=== PATIENT | male | born 2000 | race Caucasian/White ===

== ENCOUNTER 2021-11-13 20:23 | Emergency (ER) | payer OTHER ==
[~2021-11-13] VITALS: Ht 170.2 cm; Wt 97.5 kg
[~2021-11-13 20:23] MED LIST: AMOCLA500 PO; AMOX250CH PO; BENZ10TG; CODACEE120 PO; HYDACE7.5L PO; ONDA4 PO; PENVK250SU PO; TYLENOL PRN
[2021-11-13] MEDS ORDERED: OFLOXACIN5 M2 LEFTEAR (21:15)
== END 2021-11-13 21:17 | disposition home or self-care (01) ==
LOC: ER 20:23
DX: H60.92 Unspecified otitis externa, left ear (principal); R68.84 Jaw pain
CPT/HCPCS: 99283; A9270

== ENCOUNTER 2022-08-09 12:20 | Emergency (ER) | payer OTHER ==
[~2022-08-09] VITALS: Ht 172.7 cm; Wt 103.4 kg
[~2022-08-09 12:20] MED LIST changes: +OFLOXACIN5 M2 LEFTEAR
[2022-08-09 13:25] LABS: Source, Urine Clean Catch
[2022-08-09 13:28] LABS: Appearance, Urine Cloudy (Clear); Bilirubin, Urine Neg (Neg); Blood, Urine 1+ (Neg); Color, Urine Yellow (P-Yellow); Glucose Qualitative, Urine Neg (Neg); Ketones, Urine Neg (Neg); Leukocyte Esterase, Urine 1+ (Neg); Nitrite, Urine Neg (Neg); Protein, Urine 3+ (Neg); Urobilinogen, Urine NORM (Normal)
[2022-08-09 13:53] LABS: Bacteria Many /hpf; Hyaline Casts 0-2 /lpf (0-2); Squamous Epithelial Cells Rare /hpf (Few)
[2022-08-09] MEDS ORDERED: Bactrim Ds Tab1 EACH PO (14:21)
[2022-08-09] MEDS ORDERED: PHENA200 PO (14:21)
== END 2022-08-09 16:18 | disposition home or self-care (01) ==
LOC: ER 12:20
PROVIDERS: Physician Assistant
DX: N39.0 Urinary tract infection, site not specified (principal)
CPT/HCPCS: 81001; 87086; 99283; A9270